=== PATIENT | male | born 1955 | race Caucasian/White ===

== ENCOUNTER 2017-04-02 09:15 | Emergency (ER) | payer OTHER ==
[~2017-04-02] VITALS: Ht 188 cm; Wt 99.8 kg
[2017-04-02 10:18] LABS: HEMATOCRIT 39.1 % (42.0-52.0); HEMOGLOBIN 13.5 gm/dL (14.0-18.0); MCH 30.2 pg (26.0-34.0); MCHC 34.5 g/dL (28.0-37.0); MCV 87.6 fL (80.0-100.0); MPV 7.1 fl. (7.2-11.1); NUCLEATED RBCS 0 /100WBC; PLATELET COUNT* 214 thou/uL (150-400); RBC 4.47 mil/uL (4.50-6.00); RDW-CV 13.1 % (10.5-14.5); WBC 12.4 thou/uL (4.0-11.0)
[2017-04-02 10:27] LABS: CALCIUM 8.4 mg/dL (8.5-10.1); CREATININE 0.9 mg/dL (0.6-1.3); POTASSIUM 3.9 mmol/L (3.5-5.1)
[2017-04-02 10:32] LABS: ALBUMIN 3.2 g/dL (3.4-5.0); TOTAL BILIRUBIN 0.8 mg/dL (<0.1-1.0); TOTAL PROTEIN 7.5 g/dL (6.4-8.2)
[2017-04-02 10:38] LABS: INR 1.1; PROTIME 10.6 Seconds (9.20-11.50)
[2017-04-02 10:42] LABS: ABSOLUTE EOSINOPHILS 0.1 thou/uL (0.0-0.7); ABSOLUTE LYMPHOCYTES 1.4 thou/uL (0.8-5.3); ABSOLUTE MONOCYTES 1.1 thou/uL (0.0-1.2); ABSOLUTE NEUTROPHILS 9.8 thou/uL (1.6-8.1)
[2017-04-02 10:43] LABS: PLATELET ESTIMATE ADEQUATE
[2017-04-02 11:21] LABS: ESR (SEDRATE) 37 mm/hr (0-20)
[2017-04-02 13:21] LABS: SOURCE LEFT ELBOW
[2017-04-02] MEDS ORDERED: KEFLEX500 M1 PO ×2 (13:36→13:48)
[2017-04-02] MEDS ORDERED: BACTRIM DS TAB1 EACH PO ×2 (13:36→13:48)
[2017-04-02] MEDS ORDERED: PERCOCET 5-3251 EACH PO (13:36)
[2017-04-02 13:53] VITALS: BP 138/88
[2017-04-02 15:18] LABS: CLARITY HAZY; COLOR AMBER; TOTAL VOLUME 10 ml
[2017-04-02 15:19] LABS: BF LYMPHOCYTES 4 %; BF POLYS 95 %
[2017-04-02 15:21] LABS: TOTAL CELL COUNT 41076 /mm3
[2017-04-02 15:22] LABS: BF RBC 48162 /mm3
[2017-04-03 19:06] LABS: BODY FLUID PROTEIN 5.3 g/dL (())
== END 2017-04-02 13:54 | disposition home or self-care (01) ==
LOC: M.ERS 09:15
PROVIDERS: Emergency Medicine; Orthopaedic Surgery
DX: M70.22 Olecranon bursitis, left elbow (principal); L03.114 Cellulitis of left upper limb; Z98.890 Other specified postprocedural states; Z96.642 Presence of left artificial hip joint; Z88.5 Allergy status to narcotic agent

== ENCOUNTER 2017-10-19 12:48 | Emergency (ER) | payer OTHER ==
[~2017-10-19] VITALS: Ht 188 cm; Wt 99.8 kg
[~2017-10-19 12:48] MED LIST: BACTRIM DS TAB1 EACH PO; KEFLEX500 M1 PO; PERCOCET 5-3251 EACH PO
[2017-10-19] MEDS ORDERED: ULTRAM 50MG TAB50 MG PO (14:11)
[2017-10-19] MEDS ORDERED: DICLOFENAC SODI75 MG PO (14:11)
[2017-10-19 14:34] VITALS: BP 158/95
== END 2017-10-19 14:34 | disposition home or self-care (01) ==
LOC: M.ERS 12:48
DX: M13.851 Other specified arthritis, right hip (principal); Z96.641 Presence of right artificial hip joint; F17.210 Nicotine dependence, cigarettes, uncomplicated; Z88.5 Allergy status to narcotic agent